=== PATIENT | female | born 1955 ===

== ENCOUNTER 2024-10-29 12:00 | Inpatient (IN) | payer OTHER ==
[~2024-10-29] VITALS: Ht 172.7 cm; Wt 70.3 kg
[2024-10-29 13:04] VITALS: BP 135/84
[2024-10-29] MEDS ORDERED: SYNTHROID88 MCG PO (13:04)
[2024-10-29] MEDS ORDERED: NEXIUM 24HR20 M1 PO (13:32)
[2024-10-29 13:36] VITALS: BP 147/87
[2024-10-29 14:10] LABS: BASO % 0.9 % (0.1-1.2); EOS # 0.18 (0.04-0.54); EOS % 3.3 % (0.7-7.0); HEMATOCRIT 40.3 % (34.1-44.9); HEMOGLOBIN 13.6 g/dL (11.2-15.7); LYMPH # 2.14 (1.18-3.74); LYMPH % 39.3 % (19.3-53.1); MEAN CORPUSCULAR HEMOGLOBIN 31.1 pg (25.6-32.2); MONO # 0.41 (0.24-0.82); MONO % 7.5 % (4.7-12.5); NEUT # 2.66 (1.56-6.13); NEUT % 48.8 % (34.0-71.1); PLATELET COUNT 329 K/uL (163-369); RED BLOOD COUNT 4.38 M/uL (3.93-5.22); RED CELL DISTRIBUTION WIDTH 13.3 % (11.6-14.4)
[2024-10-29 14:16] LABS: URINE APPEARANCE Clear; URINE BILIRRUBIN Negative (NEGATIVE); URINE BLOOD Negative; URINE COLOR Yellow; URINE GLUCOSE Negative (NEGATIVE); URINE KETONE Negative (NEGATIVE); URINE LEUKOCYTE Large; URINE NITRATE Negative; URINE PROTEIN Negative (NEGATIVE); URINE UROBILINOGEN 0.2 E.U./dl
[2024-10-29 14:20] LABS: URINE BACTERIA 205.5 uL (0.0-1933); URINE EPITHELIAL CELLS 14.2 uL (0.0-38.8); URINE WBC 55.2 uL (0.0-23.2)
[2024-10-29 14:34] LABS: URINE RBC 1.4 uL (0.0-20.8)
[2024-10-29 14:34] LABS: PARTIAL THROMBOPLASTIN TIME 23.9 SECONDS (22.0-34.0); PROTHROMBIN TIME 10.9 SECONDS (9.0-11.5)
[2024-10-29 14:40] LABS: ALBUMIN 4.2 gm/dL (3.4-5.0); BILIRUBIN TOTAL 0.79 mg/dL (0.3-1.2); CALCIUM 9.7 mg/dL (8.5-10.1); CREATININE SERUM 0.79 mg/dL (0.55-1.02); GFR 72.59; GLOBULINA 3.2 G/DL (2.4-3.5); POTASSIUM 4.19 mEq/L (3.5-5.1); TOTAL PROTEIN 7.4 gm/dL (6.4-8.2)
[2024-11-08] MEDS ORDERED: LIDOCAINE HCL 1%/EPINEPHRINE 20ML VIAL IJ ONE (08:45)
[2024-11-08] MEDS ORDERED: BUPIVACAINE HCL 30 ML VIAL IJ ONE (08:45)
[2024-11-08] MEDS ORDERED: levoFLOXacin IN DEXTROSE 5 % 5 MG/ML PIGGYBAG IV ONE (08:45)
[2024-11-08] MEDS ORDERED: METRONIDAZOLE/SODIUM CHLORIDE 500 MG/100 ML PIGGYBACK IV ONE (08:45)
[2024-11-08] MEDS ORDERED: DEXTROSE 50 % IN WATER 0.5 G/ML VIAL IV PRN (10:00)
[2024-11-08] MEDS ORDERED: MORPHINE SULFATE 4 MG/ML CARTRIDGE IV PRN (10:00)
[2024-11-08] MEDS ORDERED: ONDANSETRON HCL 2 MG/ML VIAL IV PRN (10:00)
[2024-11-08] MEDS ORDERED: 0.9 % SODIUM CHLORIDE 1,000 ML IV SCH (10:00)
[2024-11-08] MEDS ORDERED: OxyCODONE HCL 5 MG TABLET (ROXICODONE) PO PRN (10:00)
[2024-11-08] MEDS ORDERED: MORPHINE SULFATE 4 MG/ML VIAL IV ONE (10:40)
[2024-11-08 11:40] LABS: BASO % 0.3 % (0.1-1.2); EOS # 0.06 (0.04-0.54); EOS % 0.9 % (0.7-7.0); HEMATOCRIT 34.5 % (34.1-44.9); HEMOGLOBIN 11.5 g/dL (11.2-15.7); LYMPH % 16.4 % (19.3-53.1); MEAN CORPUSCULAR HEMOGLOBIN 30.8 pg (25.6-32.2); MONO # 0.35 (0.24-0.82); MONO % 5.2 % (4.7-12.5); NEUT # 5.16 (1.56-6.13); NEUT % 76.8 % (34.0-71.1); PLATELET COUNT 241 K/uL (163-369); RED BLOOD COUNT 3.73 M/uL (3.93-5.22); RED CELL DISTRIBUTION WIDTH 13.2 % (11.6-14.4)
[2024-11-08] MEDS ORDERED: HYOSCYAMINE SULFATE 0.125 MG TAB.SUBL SL SCH (13:00)
[2024-11-08 13:06] LABS: ALBUMIN 3.2 gm/dL (3.4-5.0); CALCIUM 8.3 mg/dL (8.5-10.1); CREATININE SERUM 0.62 mg/dL (0.55-1.02); GFR 96.01; MAGNESIUM 1.7 mg/dL (1.8-2.4); PHOSPHOROUS 3.3 mg/dL (2.5-4.9); POTASSIUM 3.47 mEq/L (3.5-5.1)
[2024-11-08] MEDS ORDERED: ACETAMINOPHEN 500 MG GEL..CAP PO SCH (14:00)
[2024-11-08 14:11] VITALS: BP 147/77; O2SAT 97
[2024-11-08 15:55] VITALS: BP 150/82; O2SAT 100
[2024-11-08] MEDS ORDERED: METRONIDAZOLE/SODIUM CHLORIDE 500 MG/100 ML PIGGYBACK IV SCH (17:00)
[2024-11-08] MEDS ORDERED: GABAPENTIN 300 MG CAPSULE PO SCH (17:00)
[2024-11-08] MEDS ORDERED: POLYETHYLENE GLYCOL 3350 17 GM BLIST.PACK PO SCH (17:00)
[2024-11-08] MEDS ORDERED: CELECOXIB 200 MG CAPSULE PO SCH (21:00)
[2024-11-08] MEDS ORDERED: FAMOTIDINE/PF 20 MG/2 ML VIAL IV PUSH SCH (21:00)
[2024-11-09 01:16] VITALS: BP 117/65; O2SAT 96
[2024-11-09 07:14] LABS: HEMATOCRIT 31.5 % (34.1-44.9); HEMOGLOBIN 10.6 g/dL (11.2-15.7); MEAN CORPUSCULAR HEMOGLOBIN 30.9 pg (25.6-32.2); PLATELET COUNT 228 K/uL (163-369); RED BLOOD COUNT 3.44 M/uL (3.93-5.22); RED CELL DISTRIBUTION WIDTH 13.1 % (11.6-14.4)
[2024-11-09 07:15] LABS: BASO % 0.1 % (0.1-1.2); EOS % 0.8 % (0.7-7.0); LYMPH % 25.4 % (19.3-53.1); MONO % 7.3 % (4.7-12.5); NEUT % 65.9 % (34.0-71.1)
[2024-11-09 07:16] LABS: EOS # 0.06 (0.04-0.54); LYMPH # 1.95 (1.18-3.74); MONO # 0.56 (0.24-0.82); NEUT # 5.06 (1.56-6.13)
[2024-11-09 07:20] LABS: ALBUMIN 2.8 gm/dL (3.4-5.0); CALCIUM 7.7 mg/dL (8.5-10.1); CREATININE SERUM 0.58 mg/dL (0.55-1.02); GFR 103.69; MAGNESIUM 1.8 mg/dL (1.8-2.4); PHOSPHOROUS 3.6 mg/dL (2.5-4.9); POTASSIUM 3.61 mEq/L (3.5-5.1)
[2024-11-09 08:13] VITALS: BP 106/64; O2SAT 99
[2024-11-09] MEDS ORDERED: POTASSIUM PHOS,M-BASIC-D-BASIC 3 MM/ML VIAL IV ONE (08:15)
[2024-11-09 16:38] VITALS: BP 127/67; O2SAT 100
[2024-11-09] MEDS ORDERED: ENOXAPARIN SODIUM 40 MG/0.4 ML SYRINGE SUBCUTANEO SCH (17:00)
[2024-11-10 01:00] VITALS: BP 162/78; O2SAT 92
[2024-11-10 08:17] VITALS: BP 153/72; O2SAT 95
[2024-11-10] MEDS ORDERED: ENOXAPARIN SODIUM 40 MG/0.4 ML SYRINGE SUBCUTANEO SCH (09:00)
[2024-11-10] MEDS ORDERED: PANTOPRAZOLE SODIUM 40 MG/VIAL VIAL IV PUSH SCH (09:00)
[2024-11-10 16:10] VITALS: BP 159/86; O2SAT 96
[2024-11-10] MEDS ORDERED: BENZONATATE 200 MG CAPSULE PO SCH (17:00)
[2024-11-11 00:28] VITALS: BP 120/69; BP 152/76; O2SAT 95
[2024-11-11 08:00] VITALS: BP 170/80; O2SAT 96
[2024-11-11] MEDS ORDERED: GUAIFEN/DEXTROMETHORPHAN/PE 10 ML BLIST.PACK PO SCH (13:13)
[2024-11-11] MEDS ORDERED: ENALAPRILAT DIHYDRATE 1.25 MG/ML VIAL IV ONE (15:54)
[2024-11-11] MEDS ORDERED: ENALAPRILAT DIHYDRATE 1.25 MG/ML VIAL IV PRN (16:00)
[2024-11-11 16:15] VITALS: BP 138/78; BP 176/98; O2SAT 97
[2024-11-11] MEDS ORDERED: FLUTICASONE PROPIONATE 50 MCG SPRAY NASAL SCH (21:00)
[2024-11-12 00:50] VITALS: BP 162/78; O2SAT 95
[2024-11-12] MEDS ORDERED: TRAM1TAB98 PO (08:01)
[2024-11-12] MEDS ORDERED: PROTONIX40 MG PO (08:01)
[2024-11-12] MEDS ORDERED: DICY20TA PO (08:02)
[2024-11-12 08:57] VITALS: BP 153/73; O2SAT 95
== END 2024-11-12 14:07 | disposition home or self-care (01) | DRG 331 ==
LOC: O/R 11-08 05:32 → SURH 11-08 07:00 → SURG 11-08 10:57 → SURH 11-08 12:00 → SURG 11-12 14:07
PROVIDERS: ADMIT Surgery; ATTEND Surgery
PROC: 07BC4ZX Excision of Pelvis Lymphatic, Percutaneous Endoscopic Approach, Diagnostic (ICD-10-PCS; 2024-11-08)
PROC: 0DTF4ZZ Resection of Right Large Intestine, Percutaneous Endoscopic Approach (ICD-10-PCS; principal; 2024-11-08 07:00)
DX: D12.3 Benign neoplasm of transverse colon (principal); D37.4 Neoplasm of uncertain behavior of colon